=== PATIENT | male | born 1940 | race Hispanic/Latino ===

== ENCOUNTER 2017-10-12 16:17 | Inpatient (IN) | payer MEDICARE ==
[~2017-10-12] VITALS: Ht 162.6 cm; Wt 50.3 kg
[~2017-10-12 16:17] MED LIST: ACTOPLUS M15 MG/850 PO; ALBUTEROL0.083 % IN; ALTACE2.5 MG OR; AMBIEN10 MG OR; AMITRIPTYLIN10 MG OR; AMITRIPTYLIN25 MG PO; AMITRIPTYLIN50 MG PO; AMITRIPTYLIN75 MG PO; ASA LO-DOSE81 MG OR; ASPIRIN LOW DOS81 MG PO; ATORVASTATIN CA40 MG PO; BUMETANIDE1 MG PO; CELEBREX200 MG OR; CELEBREX200 MG PO; CEPHALEXIN500 MG OR; CITALOPRAM10 MG PO; CYMBALTA30 MG OR; DARVOCET N-100100 - OR; DOXYCYCL HYC100 MG PO; FLEXERIL PO; GNP MELATONIN3 MG PO; ISOSORB DIN30 MG OR; KENALOG-4040 MG/ML IC; LACTULOSE PO; LASIX 10 MG10 MG/TA1 PO; LASIX 20 MG TAB20 MG PO; LASIX 40 MG TAB40 MG OR; LASIX 40 MG40 MG/TAB PO; LEVAQUIN750 MG PO; LEVEMIR FLEXPEN SC; LIPITOR40 MG OR; LIPITOR40 MG PO; LISINOPRIL2.5 MG PO; LISINOPRIL5 MG PO; LORTAB 5 OR; LYRICA50 MG OR; MELATONIN3 MG PO; METHOCARBAMOL750 MG OR; MICRO-K10 ME1 PO; OXY1; OXY1 IN; POTASSIUM CHLO10 MEQ PO; PREDNISONE10 MG PO; PREDNISONE20 MG PO; PROVENTIL0.083 % IN; PULMICORT0.25 MG/2 IN; SERTRALINE HCL50 MG PO; TOPROL XL25 M1 PO; TOPROL XL50 MG OR; VICODIN ES1 TAB OR; ZOLPIDEM10 M1 PO; ZOLPIDEM5 MG PO
--- NOTE | 2017-10-12 16:40 | NUR ---
PT TAKEN TO ER ROOM 10 BY WC WITH GRANDDAUGHTER.
[2017-10-12 17:09] LABS: HEMATOCRIT 41.8 % (39.0-50.0); HEMOGLOBIN 13.5 g/dl (14.0-18.0); IMMATURE GRANULOCYTES 0.6 % (0.0-1.0); MEAN CELL VOLUME 93.1 fL CALC (80.0-100.0); MEAN CORPUSCULAR HGB 30.1 pG CALC (26.0-32.0); MEAN CORPUSCULAR HGB CONC 32.3 g/L CALC (32.0-36.0); NEUT# 15.93 thou/uL (1.82-7.42); RED BLOOD COUNT 4.49 mill/uL (4.70-6.10)
--- NOTE | 2017-10-12 17:10 | NUR ---
O2 APPLIED AT 2L/MIN VIA NASAL CANNULA. TOLERATING WELL.
[2017-10-12 17:54] LABS: ALBUMIN 4.2 g/dL (3.2-5.0); ALKALINE PHOSPHATASE 93 u/l (38-126); ANION GAP 17 (6-22 (CALC)); BILIRUBIN, TOTAL 0.9 mg/dL (0.0-1.4); BUN 13 mg/dL (8-23); BUN/CREATININE RATIO 15 (12-20 (CALC)); CARBON DIOXIDE 29 mmol/l (22-30); CHLORIDE 99 mmol/l (95-108); CREATININE 0.8 mg/dL (0.7-1.3); GFR > 60 ML/MIN (>=60 (CALC)); GFR FOR AFR.AMER. > 60 ML/MIN (>=60 (CALC)); POTASSIUM 3.5 mmol/l (3.5-5.1); SGOT/AST 26 u/l (19-48); SGPT/ALT 32 u/l (11-66); SODIUM 141 mmol/l (137-146); TOTAL PROTEIN 6.9 g/dL (6.3-8.2)
--- NOTE | 2017-10-12 18:15 | NUR ---
PATIENT RETURNS FOR RADIOLOGY DEPARTMENT IN STABLE CONDITION, O2 IN PLACE. INFORMED ABOUT URINE ORDER. URINAL PLACED BETWEEN LEGS TO COLLECT URINE. WILL CONTINUE TO MONITOR. DAUGHTER AT BEDSIDE. CALL LIGHT WITHIN REACH.
--- NOTE | 2017-10-12 18:50 | NUR ---
REPORT GIVEN TO ROBYN CLEMENT. CARE RELINQUISHED.
--- NOTE | 2017-10-12 19:13 | NUR ---
PT RESTING COMFORTABLY AT THIS TIME. A&O, SPOUSE AT BEDSIDE
[2017-10-12 19:18] LABS: URINE BILIRUBIN - DIPSTICK NEGATIVE (NEGATIVE); URINE BLOOD DIPSTICK SMALL (NEGATIVE); URINE COLOR YELLOW; URINE GLUCOSE - DIPSTICK NEGATIVE (NEGATIVE); URINE KETONE TRACE mg/dL (NEGATIVE); URINE PROTEIN - DIPSTICK 30 mg/dL (NEG-TRACE); URINE SPECIFIC GRAVITY 1.015; URINE UROBILINOGEN - DIPSTICK 0.2 E.U./dL (0.2)
[2017-10-12 19:19] LABS: URINE CLARITY CLOUDY; URINE LEUK ESTERASE MODERATE (NEGATIVE); URINE NITRITE - DIPSTICK POSITIVE (Negative)
[2017-10-12 19:28] LABS: URINE BACTERIA MANY hpf; URINE SQUAMOUS EPITHELIAL CELL FEW EPI/hpf (0-FEW); URINE WBC 50-100 WBC/hpf (0-5)
--- NOTE | 2017-10-12 19:59 | NUR ---
PT GIVEN CRACKERS & WATER. SITTING UP IN BED & RESTING COMFORTABLY.
[2017-10-12 20:11] LABS: INFLUENZA A NONE DETECTED (NONE DETECT); INFLUENZA B NONE DETECTED (NONE DETECT)
--- NOTE | 2017-10-12 20:30 | NUR ---
Report called to Mariam CARLSON, advised of IV infusion Vancomycin. Infusion continued upon transfer to floor.
[2017-10-12 20:45] VITALS: BP 131/65
--- NOTE | 2017-10-12 20:45 | NUR ---
Pt being tresported to floor via [employer]. Informed that Myoglobin was 519. Floor told to call admitting for further orders.
--- NOTE | 2017-10-12 20:45 | NUR ---
PT ARRIVED TO UNIT VIA STRETCHER WITH ER STAFF. PT ROLLED FROM STRECHER TO BED WITH ONE PERSON ASSIST. C/O RIGHT HIP PAIN AND UPPER ABDOMINAL TENDERNESS UPON ADMISSION. RESPIRATIONS EVEN AND UNLABORED ON OXYGEN. TEMPERATURE ELEVATED AND TYLENOL GIVEN. ORIENTED TO ROOM AND CALL LIGHT SYSTEM. SAFETY MEASURES IN PLACE. CALL LIGHT WITHIN REACH.
--- NOTE | 2017-10-13 00:25 | NUR ---
PT RESTING IN BED QUIETLY WATCHING TV. C/O MILD PAIN; PT REPOSITIONS SELF IN BED. SAT UP TO USE URINAL. RESPIRATIONS EVEN AND UNLABORED ON OXYGEN. HE IS HOME DEPENDENT. PT REQUESTS A FACE MASK TO WEAR STATING THAT IT HELPS HIM BREATH. PT STATES THAT HE IS SUPPOSE TO BE USING A WHEELCHAIR AT HOME, BUT DID NOT WANT TO SPEND THE MONEY TO PURCHASE IT SO HE IS ONLY USING A CANE AT THIS TIME. STATES THAT HE DOES NOT USUALLY LEAVE HIS HOUSE AND JUST SITS AT HOME AND WATCHES TV; HIS NEIGHBORS CHECK ON HIM OCCASIONALLY. RECEIVES SOCIAL SECURITY INCOME. PT IS PLEASANT, ALERT AND ORIENTED. SAFETY MEASURES IN PLACE. CALL LIGHT WITHIN REACH.
[2017-10-13 04:54] LABS: HEMATOCRIT 38.7 % (39.0-50.0); HEMOGLOBIN 12.3 g/dl (14.0-18.0); IMMATURE GRANULOCYTES 0.6 % (0.0-1.0); MEAN CELL VOLUME 93.9 fL CALC (80.0-100.0); MEAN CORPUSCULAR HGB 29.9 pG CALC (26.0-32.0); MEAN CORPUSCULAR HGB CONC 31.8 g/L CALC (32.0-36.0); NEUT# 10.78 thou/uL (1.82-7.42); RED BLOOD COUNT 4.12 mill/uL (4.70-6.10); RED CELL DISTRI WIDTH 13.2 % (11.5-15.5)
--- NOTE | 2017-10-13 04:56 | NUR ---
PT HAS C/O OF SLIGHT DIFFICULTY BREATHING. ELEVATED HEAD OF BED AND EDUCATED ON BREATHING TECHNIQUES. WHEN ASKED HOW MANY LITERS OF OXGYEN HE WEARS AT HOME PT STATES 5L, SOMETIMES 6L. TITRATED OXYGEN FROM 2L TO 3L. 96% OXYGEN SATURATION. RESPIATIONS EVEN AND UNLABORED. CALL LIGHT WITHIN REACH.
[2017-10-13 05:00] VITALS: BP 127/76
[2017-10-13 05:15] LABS: ANION GAP 13 (6-22 (CALC)); BUN 10 mg/dL (8-23); BUN/CREATININE RATIO 14 (12-20 (CALC)); CARBON DIOXIDE 30 mmol/l (22-30); CHLORIDE 102 mmol/l (95-108); CREATININE 0.8 mg/dL (0.7-1.3); GFR > 60 ML/MIN (>=60 (CALC)); GFR FOR AFR.AMER. > 60 ML/MIN (>=60 (CALC)); POTASSIUM 3.2 mmol/l (3.5-5.1); SODIUM 142 mmol/l (137-146)
[2017-10-13 07:30] VITALS: BP 121/60
--- NOTE | 2017-10-13 08:21 | NUR ---
ASSESSMENT IS COMPLTED: PT IS RELAXING IN BED. IV SITE IS FREE FROM REDNESS OR EDEMA. HR IS REG,PULSES ARE STRONG X4, ABD IS SOFT WITH ACTIVE BS, CONTINUE TO OSEBRVE AND MONITOR.
--- NOTE | 2017-10-13 08:30 | NUR ---
PT ALERT AND ORIENTED X3, NEEDS ASSISTANCE AMBULATING R/T TO RECENT FALL AT HOME. SPEECH CLEAR, FACE SYMMETRICAL, EYES EQUAL AND REACTIVE TO LIGHT. HEART SOUNDS STRONG AND REGULAR RHYTHM. LUNG SOUNDS DIMINISHED IN ALL LOBES, RESP EVEN AND UNLABORED, CONTINUOUS 02 AT 3L VIA NASAL CANNULA, 02 SAT 97%. ABDOMEN DISTENDED AND FIRM, NO ABDOMINAL TENDERNESS, BOWEL SOUNDS X4. BRISK CAP REFILLS, RADIAL AND PEDAL PULSES STRONG, #20 GUAGE IV IN LFA, IV PATENT, NO REDNESS OR EDEMA NOTED. UPPER EXTREMITY REFLEXES STRONG, LOWER EXTREMITY REFLEXES WEAK, NO EDEMA ON LOWER EXTREMITIES, SKIN CLEAR. PT COMPLAINS OF MILD TENDERNESS INBETWEEN LEFT POSTERIOR NECK/SHOULDER REGION R/T FALL. PT HAS NO OTHER NEEDS AT THIS TIME, BED IN LOWEST POSTION, WHEELS LOCKED, CALL LIGHT WITHIN REACH, PT REMINDED TO CALL FOR ASSISTANCE TO BATHROOM.
[2017-10-13 10:47] LABS: CHOLESTEROL HDL RATIO 3.2 (<4.4 (CALC))
[2017-10-13 11:06] VITALS: BP 119/75
--- NOTE | 2017-10-13 12:20 | NUR ---
PT IS RELAXING IN THE CHAIR NO DISTRESS MOTED/ IV SITE IS FREE FROM REDNESS R EDEMA.
[2017-10-13 15:24] VITALS: BP 107/51
--- NOTE | 2017-10-13 16:20 | NUR ---
PT C/O POTASSIUM GOING IN THE IV HAVE IT A SLOW RATED. IV SITE IS FREE FROM REDNESS OR EDEMA.CONTINUE TO OBSERVE AND MONITOR,
[2017-10-13 18:40] VITALS: BP 130/51
--- NOTE | 2017-10-13 19:20 | NUR ---
REPORT RECEIVED FROM [facility];PT RESTING IN BED WATCHING TV;INTRODUCED SELF TO PT AND POC DISCUSSED;PT EDUCATED ON ELEVATED TEMP AND REMOVAL OF BLANKET;FALL PRECAUTIONS IN PLACE WITH CALL LIGHT IN REACH;WILL CONTINUE TO MONITOR
--- NOTE | 2017-10-13 21:40 | NUR ---
PT RESTING IN BED;A&O X3;ASSESSMENT COMPLETED;RESPIRATIONS EVEN AND UNLABORED ON 02 @ 3L,CLEAR BUT DIMINIDHED LUNG SOUNDS NOTED;ABDOMEN DISTENDED/SOFT;WEAK PEDAL PULSES;SKIN INTACT;TELE MONITOR IN PLACE;PT TEMP 99.1 ON RE-CHECK AND PT ENCOURAGED TO LEAVE BLANKETS OFF AT THIS TIME;#20G TO LEFT FOREARM INFUSING NS @ 125ML/HR, SITE APPEARS HEALTHY;FALL PRECAUTIONS IN PLACE;PT DENIES ANY PAIN OR DISCOMFORTS AND IS ENCOURAGED TO CALL FOR ASSISTANCE IF NEEDED;CALL LIGHT IN REACH;WILL CONTINUE TO MONITOR
--- NOTE | 2017-10-14 01:00 | NUR ---
PT RESTING IN RECLINER;SEIZURE PRECAUTIONS IN PLACE;CURRENT TEMP 98.6;PT VOICES NO COMPLAINTS OF PAIN;RESPIRATIONS EVEN AND UNLABORED ON 02 @ 3L VIA NC;TELE MONITOR IN PLACE;PT ENCOURAGED TO CALL FOR ASSISTANCE IF NEEDED;CALL LIGHT IN REACH;WILL CONTINUE TO MONITOR
[2017-10-14 01:02] VITALS: BP 128/71
[2017-10-14 05:14] VITALS: BP 140/75
--- NOTE | 2017-10-14 05:15 | NUR ---
PT RESTING IN SEMI FOWLERS POSITION WITH SEIZURE PRECAUTIONS;VS AND WT OBTAINED;CURRENT TEMP 99.1,PT REFUSES PRN TYLENOL BUT REMOVES BLANKETS AND AC IS RE-LOWERED AT THIS TIME;RESPIRATIONS EVEN AND UNLABORED ON 02 @ 3L VIA NC;TELE MONITOR IN PLACE;CALL LIGHT IN REACH;WILL CONTINUE TO MONITOR
[2017-10-14 05:47] LABS: HEMATOCRIT 40.9 % (39.0-50.0); IMMATURE GRANULOCYTES 0.3 % (0.0-1.0); MEAN CELL VOLUME 95.3 fL CALC (80.0-100.0); MEAN CORPUSCULAR HGB 30.3 pG CALC (26.0-32.0); MEAN CORPUSCULAR HGB CONC 31.8 g/L CALC (32.0-36.0); NEUT# 8.8 thou/uL (1.82-7.42); RED BLOOD COUNT 4.29 mill/uL (4.70-6.10)
[2017-10-14 06:04] LABS: ANION GAP 15 (6-22 (CALC)); BUN 9 mg/dL (8-23); BUN/CREATININE RATIO 13 (12-20 (CALC)); CARBON DIOXIDE 33 mmol/l (22-30); CHLORIDE 101 mmol/l (95-108); CREATININE 0.7 mg/dL (0.7-1.3); GFR > 60 ML/MIN (>=60 (CALC)); GFR FOR AFR.AMER. > 60 ML/MIN (>=60 (CALC)); MAGNESIUM 1.9 mg/dL (1.6-2.3); POTASSIUM 3.9 mmol/l (3.5-5.1); SODIUM 144 mmol/l (137-146)
[2017-10-14 08:10] VITALS: BP 124/74
--- NOTE | 2017-10-14 08:20 | NUR ---
PT'S ASSESSMENT IS COMPLETED: IV SITE IS FREE FROM REDNESS OR EDEMA. PT C/O BEING COLD. NO DISTRESS NOTED. CONTINUE TO OSBERVE AND MONITOR.
[2017-10-14 11:15] VITALS: BP 128/60
--- NOTE | 2017-10-14 12:30 | NUR ---
PT IS RELAXING IN BED, FAMILY IN THE ROOM. NO DISTRESS NOTED. IV SITE IS FREE FROM REDNESS OR EDEMA. CONTINUE TO OBSERVE AND MONITOR.
--- NOTE | 2017-10-14 14:16 | NUR ---
PHYSICAL THERAPY IN TO VISIT WITH PT.
--- NOTE | 2017-10-14 14:27 | NUR ---
CALLED DR SANCHEZ'S OFFFICE AND DR. CUELLAR IS THE ONE [employer] MAINTENANCE CONSULTANT [employer] TOLD ME SHE WILL NOTIFY ALISA MEYER. PATIENT'S NAME AND DATE OF WAS GIVEN.
[2017-10-14 16:00] VITALS: BP 130/71
--- NOTE | 2017-10-14 16:30 | NUR ---
PT IS RELAXING IN THE CHAIR. NO DISTRESS NOTED. IV SITE IS FREE FROM REDNESS OR EDEMA. CONTINUE TO OSEBRVE AND MONITOR.
--- NOTE | 2017-10-14 16:49 | NUR ---
Patient is feeling okay. He stated that he had sob and trouble breathing. Also stated that he has an upset stomach and bloating. BOOM CONVEYOR OPERATOR was informed c
--- NOTE | 2017-10-14 19:35 | NUR ---
REPORT RECEIVED FROM [facility];PT RESTING IN SEMI FOWLERS POSITION;INTRODUCED SELF TO PT AND POC DISCUSSED;PT DENIES ANY NEEDS AT THIS TIME AND IS ENCOURAGED TO CALL FOR ASSISTANCE IF NEEDED;CALL LIGHT IN REACH;WILL CONTINUE TO MONITOR
[2017-10-14 19:45] VITALS: BP 126/66
--- NOTE | 2017-10-14 21:25 | NUR ---
PT RESTING AT BEDSIDE EATING ICE CREAM;A&O X3;ASSESSMENT COMPLETED;RESPIRATIONS EVEN AND UNLABORED ON 02 @ 3L VIA NC;DIMINISHED LUNG SOUNDS NOTED;ABDOMEN DISTENDED/FIRM UPON PALPATION;TELE MONITOR IN PLACE;#20G TO LEFT FOREARM FLUSHED AND PATENT,SITE APPEARS HEALTHY;SEIZURE PRECAUTIONS IN PLACE;SKIN INTACT;PT DENIES ANY ANY PAIN OR NEEDS AT THIS TIME;SAFETY PRECAUTIONS REINFORCED;CALL LIGHT IN REACH;WILL CONTINUE TO MONITOR
--- NOTE | 2017-10-14 23:40 | NUR ---
CALL RECEIVED FROM ER MONITORING THAT PT IS IN V-TACH;UPON ENTERING THE ROOM PT AMBULATING BACK FROM RESTROOM;VS OBTAINED BP 151/54 HR 106;PT DENIES ANY CHEST PAIN JUST "SORENESS" TO HIS ABDOMEN;TELE MONITOR IN PLACE;RESPIRATIONS 16 WITH O2 SATS @ 93% ON 02 @ 3L VIA;PT ENCOURAGED TO CALL FOR ASSISTANCE IF NEEDED;WILL CONTINUE TO MONITOR
[2017-10-15 00:33] VITALS: BP 111/66
[2017-10-15 04:47] VITALS: BP 134/82
--- NOTE | 2017-10-15 05:00 | NUR ---
PT RESTING AT BEDSIDE;PT A&O X3;RESPIRATIONS EVEN AND UNLABORED ON OXYGEN @ 3L VIA NC;TELE MONITOR IN PLACE;PT DENIES ANY NEEDS AT THIS TIME;FRESH WATER PROVIDED;FALL AND SEIZURE PRECAUTIONS IN PLACE;CALL LIGHT IN REACH;WILL CONTINUE TO MONITOR
[2017-10-15 05:42] LABS: HEMATOCRIT 40.9 % (39.0-50.0); HEMOGLOBIN 12.9 g/dl (14.0-18.0); IMMATURE GRANULOCYTES 0.5 % (0.0-1.0); MEAN CELL VOLUME 95.3 fL CALC (80.0-100.0); MEAN CORPUSCULAR HGB 30.1 pG CALC (26.0-32.0); MEAN CORPUSCULAR HGB CONC 31.5 g/L CALC (32.0-36.0); NEUT# 6.01 thou/uL (1.82-7.42); RED BLOOD COUNT 4.29 mill/uL (4.70-6.10); RED CELL DISTRI WIDTH 12.9 % (11.5-15.5)
[2017-10-15 05:57] LABS: ANION GAP 16 (6-22 (CALC)); BUN 8 mg/dL (8-23); BUN/CREATININE RATIO 11 (12-20 (CALC)); CARBON DIOXIDE 32 mmol/l (22-30); CHLORIDE 100 mmol/l (95-108); CREATININE 0.7 mg/dL (0.7-1.3); GFR > 60 ML/MIN (>=60 (CALC)); GFR FOR AFR.AMER. > 60 ML/MIN (>=60 (CALC)); MAGNESIUM 1.9 mg/dL (1.6-2.3); POTASSIUM 3.6 mmol/l (3.5-5.1); SODIUM 145 mmol/l (137-146)
--- NOTE | 2017-10-15 07:22 | NUR ---
REPORT RECEIVED FROM [facility]. PT SLEEPYODIT AT THIS TIME. CALL LIGHT WITHIN REACH. WILL CONTINUE TO MONITOR.
--- NOTE | 2017-10-15 08:41 | NUR ---
PT WAS OOB INDEPEPNDENTLY. INITIAL SPO2 ON ROOM AIR WAS 94%. AMBULATED IN THE HALLWAY ~100 FT. X 2 WITH RW AND SBA. PT APPEARED STABLE, DENIES SOB OR DIZZINESS. RETURNED TO SIT IN THE CHAIR. RECHECKED SPO2 AFTER AMBULATION, 91% ON ROOM AIR. REATTACHED O2 VIA NASAL CANNULA SET AT 2L. SPO2 INCREASED TO 95%. LEFT PT WITH CALL [place]OVER WITHIN REACH. NO ADVERSE RXNS NOTED OR REPORTED.
--- NOTE | 2017-10-15 09:00 | NUR ---
PT UP AMBULATING IN [place] WITH PT. PLAN OF CARE REVIEWED WITH PT AFTER THERAPY. REPORTING OF CONCERNS ENCOURAGED. CALL LIGHT REVIEWED AND IN REACH. PT STATES UNDERSTANDING.
[2017-10-15 10:50] VITALS: BP 121/65
--- NOTE | 2017-10-15 12:39 | NUR ---
PT SUPINE IN BED. SLEEPING.
[2017-10-15] MEDS ORDERED: CIPROFLOXACN500 MG PO (13:24)
--- NOTE | 2017-10-15 14:07 | NUR ---
DR. LYNN IN TO SEE PT. DISCHARGE DISCUSSED. AWAITING DR. CUELLAR TO SEE PT, PER LEAH OLIVERA.
[2017-10-15 16:10] VITALS: BP 128/63
== END 2017-10-15 18:50 | DRG 872 ==
LOC: ED 16:17 → ED-I 19:40 → ED 19:59 → MS2 20:00
PROVIDERS: Family Medicine; Nurse Practitioner Family; ADMIT Internal Medicine; ATTEND Internal Medicine
DX: A41.9 Sepsis, unspecified organism (principal); E11.42 Type 2 diabetes mellitus with diabetic polyneuropathy; I50.22 Chronic systolic (congestive) heart failure; N39.0 Urinary tract infection, site not specified; Z68.41 Body mass index [BMI] 40.0-44.9, adult; J44.9 Chronic obstructive pulmonary disease, unspecified; I25.10 Atherosclerotic heart disease of native coronary artery without angina pectoris; I71.4 Abdominal aortic aneurysm, without rupture; F32.9 Major depressive disorder, single episode, unspecified; G47.33 Obstructive sleep apnea (adult) (pediatric); M47.817 Spondylosis without myelopathy or radiculopathy, lumbosacral region; M47.812 Spondylosis without myelopathy or radiculopathy, cervical region; E87.6 Hypokalemia; N28.89 Other specified disorders of kidney and ureter; E27.9 Disorder of adrenal gland, unspecified; E66.01 Morbid (severe) obesity due to excess calories; B96.20 Unspecified Escherichia coli [E. coli] as the cause of diseases classified elsewhere; S00.93XA Contusion of unspecified part of head, initial encounter; W18.30XA Fall on same level, unspecified, initial encounter; Y93.89 Activity, other specified; Y92.002 Bathroom of unspecified non-institutional (private) residence as the place of occurrence of the external cause; Z95.820 Peripheral vascular angioplasty status with implants and grafts; Z87.891 Personal history of nicotine dependence; Z95.810 Presence of automatic (implantable) cardiac defibrillator; Z95.1 Presence of aortocoronary bypass graft; Z91.81 History of falling; Z79.4 Long term (current) use of insulin

== ENCOUNTER → 2018-10-23 | Outpatient (REF) | payer MEDICARE ==
[~2018-10-23] MED LIST changes: +CIPROFLOXACN500 MG PO
== END | disposition home or self-care (01) ==
LOC: STRESS 07:17 → NUCMED 07:30
PROVIDERS: ATTEND Internal Medicine
DX: I25.10 Atherosclerotic heart disease of native coronary artery without angina pectoris (principal); I50.22 Chronic systolic (congestive) heart failure
CPT/HCPCS: A9502; J0706; J2785

== ENCOUNTER 2019-05-01 11:33 | Emergency (ER) | payer MEDICARE ==
[~2019-05-01] VITALS: Ht 162.6 cm; Wt 103.3 kg
[2019-05-01 13:43] LABS: URINE BILIRUBIN - DIPSTICK NEGATIVE (NEGATIVE); URINE BLOOD DIPSTICK NEGATIVE (NEGATIVE); URINE COLOR YELLOW; URINE GLUCOSE - DIPSTICK NEGATIVE (NEGATIVE); URINE KETONE NEGATIVE (NEGATIVE); URINE LEUK ESTERASE TRACE (NEGATIVE); URINE NITRITE - DIPSTICK NEGATIVE (Negative); URINE PROTEIN - DIPSTICK NEGATIVE (NEG-TRACE); URINE SPECIFIC GRAVITY 1.015; URINE UROBILINOGEN - DIPSTICK 0.2 E.U./dL (0.2)
[2019-05-01 13:45] LABS: HEMATOCRIT 40.4 % (39.0-50.0); HEMOGLOBIN 12.8 g/dl (14.0-18.0); IMMATURE GRANULOCYTES 0.3 % (0.0-5.0); MEAN CELL VOLUME 95.7 fL CALC (80.0-100.0); MEAN CORPUSCULAR HGB 30.3 pG CALC (26.0-32.0); MEAN CORPUSCULAR HGB CONC 31.7 g/L CALC (32.0-36.0); NEUT# 7.82 thou/uL (1.82-7.42); RED BLOOD COUNT 4.22 mill/uL (4.70-6.10); RED CELL DISTRI WIDTH 12.9 % (11.5-15.5)
[2019-05-01 14:16] LABS: ALBUMIN 4.2 g/dL (3.2-5.0); ALKALINE PHOSPHATASE 67 u/l (38-126); ANION GAP 9 (6-22 (CALC)); BILIRUBIN, TOTAL 0.6 mg/dL (0.0-1.4); BUN 16 mg/dL (8-23); BUN/CREATININE RATIO 25 (12-20 (CALC)); CARBON DIOXIDE 33 mmol/l (22-30); CHLORIDE 103 mmol/l (95-108); CREATININE 0.6 mg/dL (0.7-1.3); GFR > 60 ML/MIN (>=60 (CALC)); GFR FOR AFR.AMER. > 60 ML/MIN (>=60 (CALC)); POTASSIUM 4.5 mmol/l (3.5-5.1); SGOT/AST 26 u/l (19-48); SODIUM 140 mmol/l (137-146); TOTAL PROTEIN 7.4 g/dL (6.3-8.2)
[2019-05-01 14:22] LABS: ACT PARTIAL THROMBO TIME 24.5 SECONDS (20.0-32.5); PROTHROMBIN TIME 10.4 SECONDS (9.0-12.5)
[2019-05-01 14:40] VITALS: BP 150/77
== END 2019-05-01 14:35 | disposition short-term general hospital (02) ==
LOC: ED 11:33
DX: I71.4 Abdominal aortic aneurysm, without rupture (principal); R51 Headache; E11.9 Type 2 diabetes mellitus without complications; Z79.4 Long term (current) use of insulin; Z95.0 Presence of cardiac pacemaker; Z95.828 Presence of other vascular implants and grafts; R50.9 Fever, unspecified

== ENCOUNTER 2019-05-24 16:47 | Emergency (ER) | payer MEDICARE ==
[~2019-05-24] VITALS: Ht 162.6 cm; Wt 86.4 kg
[2019-05-24 18:07] LABS: HEMATOCRIT 38.5 % (39.0-50.0); HEMOGLOBIN 12.1 g/dl (14.0-18.0); IMMATURE GRANULOCYTES 0.5 % (0.0-5.0); MEAN CELL VOLUME 95.3 fL CALC (80.0-100.0); MEAN CORPUSCULAR HGB CONC 31.4 g/L CALC (32.0-36.0); NEUT# 9.7 thou/uL (1.82-7.42); RED BLOOD COUNT 4.04 mill/uL (4.70-6.10); RED CELL DISTRI WIDTH 12.8 % (11.5-15.5)
[2019-05-24 18:08] LABS: URINE BILIRUBIN - DIPSTICK NEGATIVE (NEGATIVE); URINE BLOOD DIPSTICK NEGATIVE (NEGATIVE); URINE COLOR YELLOW; URINE GLUCOSE - DIPSTICK NEGATIVE (NEGATIVE); URINE KETONE NEGATIVE (NEGATIVE); URINE LEUK ESTERASE NEGATIVE (NEGATIVE); URINE NITRITE - DIPSTICK NEGATIVE (Negative); URINE PROTEIN - DIPSTICK NEGATIVE (NEG-TRACE); URINE SPECIFIC GRAVITY 1.015; URINE UROBILINOGEN - DIPSTICK 0.2 E.U./dL (0.2)
[2019-05-24 18:15] LABS: ALBUMIN 4.1 g/dL (3.2-5.0); ALKALINE PHOSPHATASE 84 u/l (38-126); ANION GAP 15 (6-22 (CALC)); BUN 15 mg/dL (8-23); BUN/CREATININE RATIO 17 (12-20 (CALC)); CARBON DIOXIDE 27 mmol/l (22-30); CHLORIDE 100 mmol/l (95-108); CREATININE 0.9 mg/dL (0.7-1.3); GFR > 60 ML/MIN (>=60 (CALC)); GFR FOR AFR.AMER. > 60 ML/MIN (>=60 (CALC)); POTASSIUM 3.6 mmol/l (3.5-5.1); SGOT/AST 19 u/l (19-48); SODIUM 138 mmol/l (137-146); TOTAL PROTEIN 7.3 g/dL (6.3-8.2)
[2019-05-24 18:27] LABS: MYOGLOBIN 46 ng/mL (0 - 121)
[2019-05-24 18:35] LABS: BILIRUBIN, TOTAL 0.2 mg/dL (0.0-1.4)
[2019-05-24 19:00] VITALS: BP 116/50
== END 2019-05-24 19:00 | disposition left against medical advice (07) ==
LOC: ED 16:47 → ED-I 17:51 → ED 19:00
PROVIDERS: Emergency Medicine
DX: R07.9 Chest pain, unspecified (principal); I10 Essential (primary) hypertension; E11.9 Type 2 diabetes mellitus without complications; Z95.0 Presence of cardiac pacemaker; Z91.19 Patient's noncompliance with other medical treatment and regimen